=== PATIENT | male | born 2005 | race Caucasian/White ===

== ENCOUNTER 2025-03-27 19:40 | Emergency (ER) | payer BC, SELFPAY ==
--- NOTE | ~2025-03-27 | XR_ITS ---
HISTORY: pain to 5th metacarpal following blunt trauma COMPARISON: None TECHNIQUE: 3 views of the right hand were performed. FINDINGS: Acute comminuted fracture of the distal margin of the fifth metacarpal head with extension into the a rticular surface of the fifth metacarpal phalangeal joint space. The remaining joint spaces are preserved. The carpal arcs are intact. Bone mineralization is age-appropriate. Moderate dorsal lateral soft tissue swelling. No radiopaque foreign body is identified. IMPRESSION: Acute comminuted fracture of the distal margin of the fifth metacarpal with extension int o the articular surface. Reviewed, dictated and finalized at location A. IMPRESSION: Acute comminuted fracture of the distal margin of the fifth metacar pal with extension into the articular surface.
--- NOTE | ~2025-03-27 | XR_ITS ---
HISTORY: pain to 4th MCP with remote history of trauma COMPARISON: None TECHNIQUE: 3 views of the left hand were performed. FINDINGS: Subacute comminuted fracture of the distal margin of the fourth metacarpal. No extension of the fracture lines into the articular surface. Callus formation is present. The remaining joint spaces are preserved. The carpal arcs are intact. Bone mineralization is age-appropriate Mild significant soft tissue swelling over the dorsum of the left hand. No radiopaque foreign body is identified. IMPRESSION: Subacute fracture of the distal margin of the fourth metacarpal with callus formation and bony remodeling. Reviewed, dictated and finalized at location A. IMPRESSION: Subacute fracture of the distal margin of the fourth metacarpal wit h callus formation and bony remodeling.
[2025-03-27 19:42] VITALS: BP 136/89; PULSE 61; RESP 19; TEMP 36.8; O2SAT 100
--- OUTSIDE RECORDS SUMMARY | 2025-03-27 19:42 | XMS_ITS | Clinical Summary ---
Author Organization [facility] Address [address] [place] [address] Care Team Providers Care Ruffler Name Role Phone Vani Gallowayanda Jeri RIDLEY Primary Care Provider [phone] Source Comments [facility] [employer],non-owned Affiliates and Associated Physician Practices is amultiple site organization consisting of ambulatory clinics and hospital sitesin [place], [place], [place] and [place]. This disclosure is being madepursuant to the Care Everywhere program and may not contain all information available regarding this patient. Last updated 18.[facility] [employer] Allergies No known active allergies Medications * This document contains information received from the source organization and may not represent a complete record from that organization. * Be aware that medications may not be up to date on this document. Alwaysverify current medications with the patient. methylphenidate CR (CONCERTA) 27 MG tablet Take 54 mg by mouth every morning. Active Active Problems Problem Noted Date Diagnosed Date Constipation 06/30/2011 Social History Tobacco Use Types Packs/Day Years Used Date Smoking Tobacco: Never Assessed Sex and Gender Information Value Date Recorded Sex Assigned at Not on file Legal Sex Male 5:44 AM BOX PACKER Gender Identity Not on file Sexual Orientation Not on file Last Filed Vital Signs Vital Sign Reading Time Taken Comments Blood Pressure 110/64 07/27/2016 3:40 PM BOX PACKER Pulse 114 07/27/2016 3:40 PM BOX PACKER Temperature 38.9 C (102 F) 07/27/2016 3:40 PM BOX PACKER Respiratory Rate 20 07/27/2016 3:40 PM BOX PACKER Oxygen Saturation - - Inhaled Oxygen Concentration - - Weight 57.2 kg (126 lb) 07/27/2016 3:40 PM BOX PACKER Height 149.9 cm (4' 11) 07/27/2016 3:40 PM BOX PACKER Body Mass Index 25.45 07/27/2016 3:40 PM BOX PACKER Plan of Treatment Health Maintenance Due Date Last Done Comments HIV SCREENING 10/22/2019 HPV VACCINE (1 - Male 3-dose series) 10/22/2019 MENINGOCOCCAL (Group B) VACC INE SHARED DECISION-MAKING (1 of 2 - Standard) 2020 HEPATITIS C SCREENING 10/17/2022 DTAP/TDAP/TD VACCINES (1 - Tdap) 10/22/2023 HEPATITIS B VACCINE (1 of 3 - 19+ 3-dose series) 10/22/2023 COVID-19 VACCINE (1 - 2023-2 5 season) 2024 DEPRESSION SCREENING 08/23/2024 INFLUENZA VACCINE (#1) 2025 ZOSTER VACCINE (1 of 2) 2054 HIB VACCINE Aged Out No longer eligi ble based on patient's age to complete this topic MENINGOCOCCAL GROUPS A/C/Y/W VACCINE Aged Out No longer eligible b ased on patient's age to complete this topic PNEUMOCOCCAL VACCINE Aged Out No long er eligible based on patient's age to complete this topic Insurance [place] [facility] Care Teams Ruffler Relationship Specialty Start Date End Date Ashley Galloway DO PCP - General Pediatrics 07/27/16
--- OUTSIDE RECORDS SUMMARY | 2025-03-27 21:03 | XMS_ITS | Clinical Summary ---
Author Organization [facility] Address [address] [place] [address] Care Team Providers Care Reed Dipper Name Role Phone Vani Gallowayanda Jeri RIDLEY Primary Care Provider [phone] Source Comments [facility] [employer],non-owned Affiliates and Associated Physician Practices is amultiple site organization consisting of ambulatory clinics and hospital sitesin [place], [place], [place] and [place]. This disclosure is being madepursuant to the Care Everywhere program and may not contain all information available regarding this patient. 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 Gender Identity Not on file Sexual Orientation Not on file Last Filed Vital Signs Vital Sign Reading Time Taken Comments Blood Pressure 110/64 07/27/2016 3:40 PM CRYSTALLOGRAPHER Pulse 114 07/27/2016 3:40 PM CRYSTALLOGRAPHER Temperature 38.9 C (102 F) 07/27/2016 3:40 PM CRYSTALLOGRAPHER Respiratory Rate 20 07/27/2016 3:40 PM CRYSTALLOGRAPHER Oxygen Saturation - - Inhaled Oxygen Concentration - - Weight 57.2 kg (126 lb) 07/27/2016 3:40 PM CRYSTALLOGRAPHER Height 149.9 cm (4' 11) 07/27/2016 3:40 PM CRYSTALLOGRAPHER Body Mass Index 25.45 07/27/2016 3:40 PM CRYSTALLOGRAPHER Plan of Treatment Health Maintenance Due Date [...] patient's age to complete this topic Insurance [place] [facility] Care Teams Reed Dipper Relationship Specialty Start Date End Date Ashley Galloway DO PCP - General Pediatrics 07/27/16
[2025-03-27] MEDS: IBUPROFEN 400 MG TABLET 800 MG PO (22:48)
--- NOTE | 2025-03-27 23:01 | ED_ITS ---
HPI - Extremity Injury (Upper) General Chief Complaint: Extremity Injury, Upper Stated Complaint: punch street sign, pinky hurts Time Seen by Provider: 03/27/25 20:20 History of Present Illness HPI narrative: 19-year-old male presents to the emergency department for pain to his right and left hand. Patient states today he became upset during an argument and when outside and punched a street sign with his right hand. He is reporting pain and swelling to the 5th metacarpal and MCP. He also notes a few weeks ago he became upset and punched something with his left hand and has had pain to his 4th MCP since. He states while he is here to get his right hand checked he would like to have imaging of his left hand. He denies SI or HI but his mother is at bedside and is requesting referrals for counseling for anger management. Related Data Allergies Allergy/AdvReac Type Severity Reaction Status Date / Time No Known Allergies Allergy Unverified 03/27/25 20:43 Review of Systems Review of Systems: All systems reviewed & are unremarkable except as noted in HPI and below Exam Narrative: GENERAL: Well-appearing, well-nourished, and in no acute distress. HEAD: Normocephalic, atraumatic. EYES: EOMI. ENT: Nares clear, no rhinorrhea or epistaxis. Mucous membranes moist. NECK: Supple. CHEST: Clear to auscultation. No respiratory distress. HEART: Regular rate and rhythm. No murmur heard. Normal peripheral pulses. EXTREMITIES: Tenderness and swelling over the dorsum of the right 5th metacarpal and over the left 4th MCP. Patient has full active and passive range of motion of all digits. Radial, median and ulnar nerves are intact bilaterally. Cap refill is less than to throughout. Radial pulses are 2+. Sensation intact. No anatomical snuffbox tenderness or wrist tenderness. Compartments soft throughout SKIN: Warm, dry, no rash. NEURO: No focal deficits. Alert and oriented x3 Course Vital Signs Vital signs: Vital Signs Temperature 98.3 F 03/27/25 19:42 Pulse Rate 61 03/27/25 19:42 Respiratory Rate 19 03/27/25 19:42 Blood Pressure 136/89 03/27/25 19:42 Pulse Oximetry 100 03/27/25 19:42 Oxygen Delivery Room Air 03/27/25 19:42 Temperature 98.3 F 03/27/25 19:42 Pulse Rate 61 03/27/25 19:42 Respiratory Rate 19 03/27/25 19:42 Blood Pressure 136/89 03/27/25 19:42 Pulse Oximetry 100 03/27/25 19:42 Oxygen Delivery Room Air 03/27/25 19:42 MDM - Extremity Injury (Upper) MDM Narrative Medical decision making narrative: 19-year-old male presents emergency department for right hand pain after punching a sign today out of anger. He is also endorsing pain to his left hand after punching something several weeks ago out of anger. Triage vitals are stable. Exam is notable for the above. Patient is neurovascularly intact. X-ray the right hand shows an acute comminuted fracture of the distal margin of the 5th metacarpal with extension into the articular surface. X-ray of the left hand shows a subacute fracture of the distal margin of the 4th metacarpal with callus formation and bony remodeling. Patient and mother at bedside were updated on results. Ibuprofen provided for pain. Patient was placed in bilateral ulnar gutter splint and given follow-up for hand surgery. Tylenol ibuprofen provided for pain. Encouraged RICE. Patient was also given referrals for outpatient psychiatry as requested. He was given strict ED return precautions. He is agreeable with the plan verbalized understanding. Discharged in stable condition. Discharge Plan Discharge Clinical Impression: Closed fracture of 5th metacarpal Qualifiers: Encounter type: initial encounter Metacarpal location: unspecified portion of metacarpal Fracture alignment: nondisplaced Laterality: right Qualified Code(s): S62.306A - Unspecified fracture of fifth metacarpal bone, right hand, initial encounter for closed fracture Closed fracture of fourth metacarpal bone Qualifiers: Encounter type: initial encounter Metacarpal location: unspecified portion of metacarpal Fracture alignment: nondisplaced Laterality: left Qualified Code(s): S62.305A - Unspecified fracture of fourth metacarpal bone, left hand, initial encounter for closed fracture Patient Disposition: Home Condition: Stable Instructions: Antibiotic Form, Hand Fracture (ED) Additional Instructions: Please follow-up closely with a hand surgeon. Rest, ice, elevate and keep your splint on. Take Tylenol ibuprofen as needed for pain. Stop punching things. Follow-up with the psychiatry referral for help with anger management. Patient Language: Citizen Of [place] Prescriptions: New ibuprofen 800 mg tablet 800 mg PO TID PRN (Reason: pain) Qty: 20 0RF acetaminophen 500 mg capsule 500 mg PO Q6H PRN (Reason: pain) Qty: 14 0RF Follow-up/Referrals: Carri Whitaker MD [Physician] - UNKNOWN,DOCTOR [Primary Care Provider] -
--- NOTE | 2025-03-28 00:07 | PC.NURSE ---
Provider requesting splint positioning different. Discussed with tech who is going to redo splinting.
[2025-03-28 00:31] VITALS: BP 122/74; PULSE 68; RESP 14; O2SAT 99
--- NOTE | 2025-03-28 00:33 | PC.NURSE ---
Splints reviewed by provider and pt is ready for discharge at this time.
== END 2025-03-28 00:33 | disposition home or self-care (01) ==
PROVIDERS: Emergency Provider Physician Assistant
DX: S62.306A Unspecified fracture of fifth metacarpal bone, right hand, initial encounter for closed fracture (principal); S62.305A Unspecified fracture of fourth metacarpal bone, left hand, initial encounter for closed fracture; W22.8XXA Striking against or struck by other objects, initial encounter
CPT/HCPCS: 29125; 29130; 73130; 99284; A9270